=== PATIENT | female | born 1940 | race Caucasian/White ===

== ENCOUNTER 2016-03-06 10:28 | Outpatient (CLI) | payer MEDICARE, OTHER ==
[2015-12-15 03:10] VITALS: BP 138/44
[2016-03-06 11:20] LABS: eGFR (African) > 60; eGFR (Non-African) > 60
== END 2016-03-06 10:30 ==
LOC: LAB 10:28
PROVIDERS: ATTEND Family Medicine
DX: E78.5 Hyperlipidemia, unspecified (principal); E11.9 Type 2 diabetes mellitus without complications; I10 Essential (primary) hypertension
CPT/HCPCS: 36415; 80048; 80061; 83036

== ENCOUNTER 2016-09-04 10:03 | Outpatient (CLI) | payer MEDICARE, OTHER ==
[2015-12-15 03:10] VITALS: BP 138/44
--- NOTE | 2016-09-04 15:29 | Diagnostic Imaging Report ---
MINI RAMÍREZ [facility] [address] [facility] [address] [address] Report Submission Date: Sep 04, 2016 12:29:56 PM CDT Patient Study Name: OREN JESUS Date: Sep 04, 2016 10:13:55 AM CDT Modality Type: CR Gender: F Description: SPINE : 40 Institution: [facility] Physician: MINI RAMÍREZ Examination: Plain film lumbar spine History: Back discomfort Findings: 5 views of the lumbar spine demonstrates generalized osteopenia. Curvature to the left on the anterior posterior film. Anterior osteophytes and facet degenerative changes. Anterior degenerative wedging involving L3. Oblique views do not demonstrate pars irregularity. Mild atherosclerotic disease involving the abdominal aorta and iliac vessels Impression: Curvature and multilevel degenerative changes. If patient is experiencing neurologic symptoms, consider obtaining MRI. Electronically signed on Sep 04, 2016 12:29:56 PM CDT by: Jose HOLDEN
== END 2016-09-04 10:04 ==
LOC: RAD 10:03
PROVIDERS: ATTEND Family Medicine
DX: E11.9 Type 2 diabetes mellitus without complications (principal); E78.5 Hyperlipidemia, unspecified; M48.06 Spinal stenosis, lumbar region
CPT/HCPCS: 36415; 72110; 80061; 83036

== ENCOUNTER 2017-08-27 11:01 | Outpatient (CLI) | payer MEDICARE, OTHER ==
[2015-12-15 03:10] VITALS: BP 138/44
[2017-08-27 11:25] LABS: BASOPHILS % 0.7 (0.0-1.5); EOSINOPHILS % 3.7 % (0.0-6.8); MEAN CORPUSCULAR HEMOGLOBIN 32.8 pg (28.0-34.0); MEAN CORPUSCULAR VOLUME 95.4 fl (80.0-100.0); MONOCYTES % 6.7 % (0.0-11.0); NEUTROPHILS # 2.8 # k/uL (1.4-7.7)
[2017-08-27 12:06] LABS: eGFR (African) > 60; eGFR (Non-African) > 60
== END 2017-08-27 12:33 ==
LOC: LAB 11:01
PROVIDERS: ATTEND Family Medicine
DX: E11.9 Type 2 diabetes mellitus without complications (principal); E78.5 Hyperlipidemia, unspecified; I10 Essential (primary) hypertension
CPT/HCPCS: 36415; 80053; 80061; 83036; 85025

== ENCOUNTER 2017-12-15 14:44 | Outpatient (CLI) | payer MEDICARE, OTHER ==
[2015-12-15 03:10] VITALS: BP 138/44
[2017-12-15 16:42] LABS: BASOPHILS % 0.3 (0.0-1.5); EOSINOPHILS % 4.3 % (0.0-6.8); MONOCYTES % 7.9 % (0.0-11.0); NEUTROPHILS # 3.3 # k/uL (1.4-7.7); eGFR (Non-African) > 60
== END 2017-12-15 14:45 ==
LOC: LAB 14:44
PROVIDERS: ATTEND Family Medicine
DX: I10 Essential (primary) hypertension (principal); R41.3 Other amnesia
CPT/HCPCS: 36415; 80053; 82607; 82746; 84443; 85025

== ENCOUNTER 2018-04-27 09:31 | Outpatient (CLI) | payer MEDICARE, OTHER ==
[2015-12-15 03:10] VITALS: BP 138/44
== END 2018-04-27 09:33 ==
LOC: LAB 09:31
PROVIDERS: ATTEND Family Medicine
DX: E11.9 Type 2 diabetes mellitus without complications (principal)
CPT/HCPCS: 36415; 83036

== ENCOUNTER 2018-08-17 10:16 | Outpatient (CLI) | payer MEDICARE, OTHER ==
[2015-12-15 03:10] VITALS: BP 138/44
--- NOTE | 2018-08-18 07:57 | Diagnostic Imaging Report ---
MINI RAMÍREZ [facility] [address] [facility] [address] [address] Report Submission Date: Aug 17, 2018 11:06:28 AM CDT Patient Study Name: OREN JESUS Date: Aug 17, 2018 10:17:22 AM CDT Modality Type: DX Gender: F Description: LT HIP 2VIEW COMPLETE : 40 Institution: [facility] Physician: MINI RAMÍREZ Examination: Plain film left hip History: PAIN WHEN WALKING, PT STATES FALL A FEW YEARS AGO WITH HIP PAIN SINCE FALL Comparison exams: None provided Findings: 2 views of the left hip demonstrates osteopenia. No fracture no dislocation. No soft tissue abnormality. Impression: No acute appearing osseous abnormality. Electronically signed on Aug 17, 2018 11:06:28 AM CDT by: Jose HOLDEN
== END 2018-08-17 10:18 ==
LOC: RAD 10:16
PROVIDERS: ATTEND Family Medicine
DX: M25.552 Pain in left hip (principal)

== ENCOUNTER 2018-10-17 14:45 | Outpatient (CLI) | payer MEDICARE, OTHER ==
[2015-12-15 03:10] VITALS: BP 138/44
[2018-10-17 14:59] LABS: BASOPHILS % 0.4 % (0.0-1.5); NEUTROPHILS # 5.3 # k/uL (1.4-7.7)
[2018-10-17 15:10] LABS: eGFR (Non-African) > 60
[2018-10-17 15:11] LABS: A1C 6.3 % (<5.7)
== END 2018-10-17 14:47 ==
LOC: LAB 14:45
PROVIDERS: ATTEND Family Medicine
DX: E11.9 Type 2 diabetes mellitus without complications (principal); I10 Essential (primary) hypertension
CPT/HCPCS: 36415; 80053; 83036; 85025

== ENCOUNTER 2018-11-28 15:12 | Outpatient (CLI) | payer MEDICARE, OTHER ==
[2015-12-15 03:10] VITALS: BP 138/44
[2018-11-28 16:21] LABS: BASOPHILS % 0.4 % (0.0-1.5)
== END 2018-11-28 15:17 ==
LOC: LAB 15:12
PROVIDERS: ATTEND Family Medicine
DX: E03.9 Hypothyroidism, unspecified (principal); R41.3 Other amnesia; D64.9 Anemia, unspecified
CPT/HCPCS: 36415; 82607; 82746; 84443; 85025